=== PATIENT | male | born 1960 | race Caucasian/White ===

== ENCOUNTER 2021-07-13 15:11 | Inpatient (IN) ==
[2021-07-13 16:08] LABS: Basophils # 0.1 K/mcL (0.0-0.2); Basophils % 0.9 %; Eosinophils # 0.2 K/mcL (0.0-0.6); Eosinophils % 1.3 %; Hematocrit 34.4 % (37.5-50.1); Hemoglobin 12.1 g/dL (12.9-16.9); Immature Granulocytes % 1.2 % (0-4); Lymphocytes # 1.7 K/mcL (0.6-4.6); Lymphocytes % 10.7 %; Mean Corpuscular HGB Conc 35.2 g/dL (31.6-35.5); Mean Corpuscular Hemoglobin 30.7 pg (28.0-33.3); Mean Corpuscular Volume 87.3 fL (83.0-100.0); Mean Platelet Volume 8.1 fL (9.4-12.4); Monocytes # 1.2 K/mcL (0.0-1.3); Monocytes % 7.3 %; Neutrophils # 12.7 K/mcL (1.6-8.9); Platelet Count 304 K/mcL (140-400); Red Blood Count 3.94 M/mcL (4.19-5.50); Red Cell Distribution Width 12.9 % (11.5-14.5); Segmented Neutrophils % 78.6 %; White Blood Count 16.1 K/mcL (4.3-11.1)
[2021-07-13 16:17] LABS: Acetaminophen < 10 mcg/mL (10-20); Alanine Aminotransferase 52 Units/L (7-52); Albumin 4.4 g/dL (3.5-5.7); Albumin/Globulin Ratio 1.7 (1.1-2.2); Alkaline Phosphatase 118 Units/L (34-104); Aspartate Amino Transferase 49 Units/L (13-39); BUN/Creatinine Ratio 10 (6-26); Bilirubin,Total 0.4 mg/dL (0.3-1.0); Blood Urea Nitrogen 8 mg/dL (8-23); Calcium 8.7 mg/dL (8.6-10.3); Carbon Dioxide 17 mEq/L (23-29); Chloride 85 mEq/L (98-107); Ethanol 102 mg/dL (Less than 10); Globulin 2.6 g/dL (2.4-3.5); Glucose 120 mg/dL (70-105); Osmolality,Calculated 236 (280-300); Potassium 4.4 mEq/L (3.5-5.1); Sodium 113 mEq/L (136-145); eGFR For African Americans > 60 (> 60); eGFR For Non-African Americans > 60 (> 60)
[2021-07-13] MEDS ORDERED: *HR* LORazepam 0.5 MG TABLET PO ONE (16:50)
[2021-07-13] MEDS ORDERED: 0.9 % Sodium Chloride 1,000 ML IVC SCH (17:00)
[2021-07-13] MEDS ORDERED: Furosemide 40 MG/4 ML VIAL IVP ONE (17:43)
[2021-07-13] MEDS ORDERED: Morphine Sulfate 2 MG/ML SYRINGE IVP ONE (17:45)
[2021-07-13 17:50] LABS: Bilirubin,Urine Negative (Negative); Blood,Urine Negative (Negative); Clarity,Urine Clear (Clear); Color,Urine Yellow (Yellow); Glucose,Urine (UA) Normal (Normal); Hyaline Casts,Urine Few per lpf (None Seen); Ketones,Urine Negative (Negative); Leukocyte Esterase,Urine Negative (Negative); Mucus,Urine Few per lpf (None-Few); Nitrite,Urine Negative (Negative); Protein,Urine 200 mg/dL (Neg-Trace); RBC,Urine 0-3 per hpf (0-3); Specific Gravity,Urine 1.016 (1.010-1.025); Urobilinogen,Urine Normal (Normal); WBC,Urine 0-3 per hpf (0-3)
[2021-07-13] MEDS ORDERED: Ipratropium/Albuterol Neb 3 ML ONE (18:20)
[2021-07-13] MEDS ORDERED: Ipratropium/Albuterol Neb 3 ML IH ONE (18:24)
[2021-07-13 18:37] LABS: Creatine Kinase 151 Units/L (30-223); Lipase 68 Units/L (11-82); Troponin I < 0.03 ng/mL (< 0.04)
[2021-07-13] MEDS ORDERED: Melatonin 3 MG TABLET PO PRN (19:23)
[2021-07-13] MEDS ORDERED: Acetaminophen 325 MG TABLET PO PRN (19:23)
[2021-07-13] MEDS ORDERED: *HR* HYDROcodone/Acet 5/325 mg TABLET PO PRN (19:23)
[2021-07-13] MEDS ORDERED: Naloxone 0.4 MG/ML INJ IVP PRN (19:23)
[2021-07-13] MEDS ORDERED: Ondansetron 4 MG/2 ML VIAL IVP PRN (19:23)
[2021-07-13] MEDS ORDERED: *HR* LORazepam 2 MG/ML VIAL IVP PRN ×2 (19:29)
[2021-07-13] MEDS ORDERED: Saline Nasal Spray 44 ML BOTTLE NS PRN (19:30)
[2021-07-13] MEDS ORDERED: Saliva Stimulant 44.3ml BOTTLE PO PRN (19:30)
[2021-07-13] MEDS ORDERED: Artificial Tears SOLN 15 ML BOTTLE BOTH EYES PRN (19:30)
[2021-07-13] MEDS ORDERED: *HR* Dextrose 50 % in Water (Syg) 50 ML SYRINGE IVP PRN (19:32)
[2021-07-13] MEDS ORDERED: Dextrose Gel 15 GM/37.5 ML TUBE PO PRN ×2 (19:32)
[2021-07-13] MEDS ORDERED: D5% in Water 1,000 ML IVC PRN (19:32)
[2021-07-13] MEDS ORDERED: Perflutren Lipid Microsphere 1.3 ML in 0.9 % Sodium Chloride 8.7 ML IVP PRN (19:32)
[2021-07-13] MEDS: Ipratropium/Albuterol Neb 3 ML IH SCH ×2 (20:12→23:26)
[2021-07-13 20:45] LABS: BUN/Creatinine Ratio 11 (6-26); Blood Urea Nitrogen 8 mg/dL (8-23); Calcium 8.5 mg/dL (8.6-10.3); Carbon Dioxide 17 mEq/L (23-29); Chloride 87 mEq/L (98-107); Glucose 89 mg/dL (70-105); Osmolality,Calculated 236 (280-300); Potassium 4.6 mEq/L (3.5-5.1); Sodium 114 mEq/L (136-145); eGFR For African Americans > 60 (> 60); eGFR For Non-African Americans > 60 (> 60)
[2021-07-13] MEDS: Lactobacillus 1 EACH CAP.SPRINK PO SCH (20:58)
[2021-07-13] MEDS: Chlorhexidine Rinse 15 ML MOUTHWASH MM SCH (20:58)
[2021-07-13] MEDS: cefTRIAXone 2,000 MG in 0.9 % Sodium Chloride 20 ML IVP SCH (20:59)
[2021-07-13] MEDS: *HR* LORazepam 2 MG/ML VIAL IVP PRN (20:59)
[2021-07-13] MEDS: Furosemide 40 MG/4 ML VIAL IVP SCH (20:59)
[2021-07-13 21:11] LABS: Troponin I < 0.03 ng/mL (< 0.04)
[2021-07-13] MEDS: Doxycycline 100 MG in 0.9 % Sodium Chloride Mini Bag 100 ML IVPB SCH (21:20)
[2021-07-13] MEDS: Nicotine 21 MG PATCH.TD24 TD SCH (21:41)
[2021-07-13 23:15] LABS: Protein/Creatinine Ratio,Urine 2.71 mg/mg (0.00-0.20); Sodium, Urine 22.4 mEq/L
[2021-07-14] MEDS: methylPREDNISolone 125 MG/2 ML VIAL IVP SCH ×2 (00:52→07:59)
[2021-07-14] MEDS ORDERED: Calcium Gluconate 1gm/50mL 1 GM/50 ML BAG IVPB SCH (01:30)
[2021-07-14 02:38] LABS: BUN/Creatinine Ratio 12 (6-26); Blood Urea Nitrogen 10 mg/dL (8-23); Calcium 8.4 mg/dL (8.6-10.3); Carbon Dioxide 18 mEq/L (23-29); Chloride 89 mEq/L (98-107); Glucose 86 mg/dL (70-105); Osmolality,Calculated 244 (280-300); Potassium 4.3 mEq/L (3.5-5.1); Sodium 118 mEq/L (136-145); eGFR For African Americans > 60 (> 60); eGFR For Non-African Americans > 60 (> 60)
[2021-07-14 04:11] LABS: Troponin I < 0.03 ng/mL (< 0.04)
[2021-07-14] MEDS: Ipratropium/Albuterol Neb 3 ML IH SCH ×6 (04:26→23:43)
[2021-07-14 05:32] LABS: INR 1.4; Prothrombin Time 16.1 Seconds (9.4-12.1)
[2021-07-14 05:34] LABS: Activated Partial Thrombo Time 34.1 Seconds (26.0-36.0)
[2021-07-14 05:38] LABS: Basophils % 0.2 %; Eosinophils % 0.1 %; Hematocrit 34.5 % (37.5-50.1); Hemoglobin 12.2 g/dL (12.9-16.9); Immature Granulocytes % 0.8 % (0-4); Lymphocytes # 0.3 K/mcL (0.6-4.6); Lymphocytes % 2.7 %; Mean Corpuscular HGB Conc 35.4 g/dL (31.6-35.5); Mean Corpuscular Hemoglobin 30.5 pg (28.0-33.3); Mean Corpuscular Volume 86.3 fL (83.0-100.0); Mean Platelet Volume 8.3 fL (9.4-12.4); Monocytes # 0.3 K/mcL (0.0-1.3); Neutrophils # 11.7 K/mcL (1.6-8.9); Platelet Count 275 K/mcL (140-400); Red Cell Distribution Width 12.7 % (11.5-14.5); Segmented Neutrophils % 94.2 %; White Blood Count 12.4 K/mcL (4.3-11.1)
[2021-07-14 05:48] LABS: Alanine Aminotransferase 39 Units/L (7-52); Albumin 4.1 g/dL (3.5-5.7); Albumin/Globulin Ratio 1.6 (1.1-2.2); Alkaline Phosphatase 118 Units/L (34-104); Aspartate Amino Transferase 26 Units/L (13-39); BUN/Creatinine Ratio 13 (6-26); Bilirubin,Total 0.6 mg/dL (0.3-1.0); Blood Urea Nitrogen 11 mg/dL (8-23); Calcium 8.9 mg/dL (8.6-10.3); Carbon Dioxide 21 mEq/L (23-29); Chloride 89 mEq/L (98-107); Chol/HDL Ratio 1.8 (0-4.9); Cholesterol 96 mg/dL (< 200); Globulin 2.6 g/dL (2.4-3.5); Glucose 113 mg/dL (70-105); HDL Cholesterol 53 mg/dL (40-59); LDL Cholesterol,Calculated 33 mg/dL (< 100); Magnesium 1.7 mg/dL (1.6-2.6); Osmolality,Calculated 246 (280-300); Phosphorous 4.7 mg/dL (2.7-4.5); Potassium 4.7 mEq/L (3.5-5.1); Sodium 118 mEq/L (136-145); Total Protein 6.7 g/dL (6.4-8.9); Triglycerides 48 mg/dL (< 150); eGFR For African Americans > 60 (> 60); eGFR For Non-African Americans > 60 (> 60)
[2021-07-14] MEDS: Doxycycline 100 MG in 0.9 % Sodium Chloride Mini Bag 100 ML IVPB SCH (05:56)
[2021-07-14] MEDS ORDERED: *HR* Enoxaparin 40 MG/0.4 ML SYRINGE SQ SCH (06:00)
[2021-07-14] MEDS: *HR* LORazepam 2 MG/ML VIAL IVP PRN ×2 (06:08→13:21)
[2021-07-14] MEDS: Calcium Gluconate 1gm/50mL 1 GM/50 ML BAG IVPB SCH ×2 (06:29→06:58)
[2021-07-14] MEDS: Chlorhexidine Rinse 15 ML MOUTHWASH MM SCH ×2 (07:58→20:36)
[2021-07-14] MEDS: cefTRIAXone 2,000 MG in 0.9 % Sodium Chloride 20 ML IVP SCH (07:58)
[2021-07-14] MEDS: Furosemide 40 MG/4 ML VIAL IVP SCH ×2 (07:59→16:37)
[2021-07-14] MEDS: Nicotine 21 MG PATCH.TD24 TD SCH (07:59)
[2021-07-14] MEDS: Lactobacillus 1 EACH CAP.SPRINK PO SCH ×2 (07:59→20:28)
[2021-07-14] MEDS ORDERED: Vitamin B Complex/Vit C/Vit E 1 EACH TABLET PO SCH (09:00)
[2021-07-14] MEDS ORDERED: Thiamine (B-1) 100 MG TABLET PO SCH (09:00)
[2021-07-14] MEDS ORDERED: Folic Acid 1 MG TABLET PO SCH (09:00)
[2021-07-14] MEDS ORDERED: Nicotine 14 MG PATCH.TD24 TD SCH (09:00)
[2021-07-14 11:18] LABS: BUN/Creatinine Ratio 15 (6-26); Blood Urea Nitrogen 14 mg/dL (8-23); Calcium 9.6 mg/dL (8.6-10.3); Carbon Dioxide 21 mEq/L (23-29); Chloride 90 mEq/L (98-107); Glucose 208 mg/dL (70-105); Osmolality,Calculated 259 (280-300); Potassium 4.2 mEq/L (3.5-5.1); Sodium 121 mEq/L (136-145); eGFR For African Americans > 60 (> 60); eGFR For Non-African Americans > 60 (> 60)
[2021-07-14] MEDS ORDERED: Metoprolol XL (24 HR) Succ 25 MG TAB.ER.24H PO SCH (13:00)
[2021-07-14 17:01] LABS: BUN/Creatinine Ratio 18 (6-26); Blood Urea Nitrogen 20 mg/dL (8-23); Calcium 9.3 mg/dL (8.6-10.3); Carbon Dioxide 21 mEq/L (23-29); Chloride 93 mEq/L (98-107); Glucose 156 mg/dL (70-105); Osmolality,Calculated 264 (280-300); Potassium 4.1 mEq/L (3.5-5.1); Sodium 124 mEq/L (136-145); eGFR For African Americans > 60 (> 60); eGFR For Non-African Americans > 60 (> 60)
[2021-07-14] MEDS ORDERED: D5% in Water 1,000 ML IVC PRN (18:00)
[2021-07-14] MEDS ORDERED: Acetaminophen 325 MG TABLET PO PRN (18:00)
[2021-07-14] MEDS ORDERED: Saline Nasal Spray 44 ML BOTTLE NS PRN (18:00)
[2021-07-14] MEDS ORDERED: *HR* LORazepam 2 MG/ML VIAL IVP PRN ×3 (18:00)
[2021-07-14] MEDS ORDERED: *HR* HYDROcodone/Acet 5/325 mg TABLET PO PRN (18:00)
[2021-07-14] MEDS ORDERED: Ondansetron 4 MG/2 ML VIAL IVP PRN (18:00)
[2021-07-14] MEDS ORDERED: Melatonin 3 MG TABLET PO PRN (18:00)
[2021-07-14] MEDS ORDERED: Saliva Stimulant 44.3ml BOTTLE PO PRN (18:00)
[2021-07-14] MEDS ORDERED: *HR* Dextrose 50 % in Water (Syg) 50 ML SYRINGE IVP PRN (18:00)
[2021-07-14] MEDS ORDERED: Naloxone 0.4 MG/ML INJ IVP PRN (18:00)
[2021-07-14] MEDS ORDERED: Artificial Tears SOLN 15 ML BOTTLE BOTH EYES PRN (18:00)
[2021-07-14] MEDS ORDERED: Dextrose Gel 15 GM/37.5 ML TUBE PO PRN ×2 (18:00)
[2021-07-14 19:58] LABS: BUN/Creatinine Ratio 19 (6-26); Blood Urea Nitrogen 21 mg/dL (8-23); Calcium 9.5 mg/dL (8.6-10.3); Carbon Dioxide 21 mEq/L (23-29); Chloride 91 mEq/L (98-107); Glucose 153 mg/dL (70-105); Osmolality,Calculated 264 (280-300); Sodium 124 mEq/L (136-145); eGFR For African Americans > 60 (> 60); eGFR For Non-African Americans > 60 (> 60)
[2021-07-14] MEDS: Metoprolol 100 MG TABLET PO SCH (20:39)
[2021-07-15 01:41] LABS: Hematocrit 30.1 % (37.5-50.1); Mean Corpuscular HGB Conc 34.6 g/dL (31.6-35.5); Mean Corpuscular Volume 86.7 fL (83.0-100.0); Mean Platelet Volume 8.4 fL (9.4-12.4); Platelet Count 274 K/mcL (140-400); Red Blood Count 3.47 M/mcL (4.19-5.50); Red Cell Distribution Width 12.8 % (11.5-14.5)
[2021-07-15 01:53] LABS: Hemoglobin 10.4 g/dL (12.9-16.9); White Blood Count 23.3 K/mcL (4.3-11.1)
[2021-07-15 02:01] LABS: Magnesium 1.8 mg/dL (1.6-2.6)
[2021-07-15 02:22] LABS: BUN/Creatinine Ratio 23 (6-26); Blood Urea Nitrogen 22 mg/dL (8-23); Calcium 8.8 mg/dL (8.6-10.3); Carbon Dioxide 22 mEq/L (23-29); Chloride 92 mEq/L (98-107); Glucose 123 mg/dL (70-105); Osmolality,Calculated 259 (280-300); Potassium 3.8 mEq/L (3.5-5.1); Sodium 122 mEq/L (136-145); eGFR For African Americans > 60 (> 60); eGFR For Non-African Americans > 60 (> 60)
[2021-07-15] MEDS: Ipratropium/Albuterol Neb 3 ML IH SCH ×3 (03:58→11:20)
[2021-07-15 05:48] LABS: BUN/Creatinine Ratio 22 (6-26); Blood Urea Nitrogen 19 mg/dL (8-23); Calcium 8.7 mg/dL (8.6-10.3); Carbon Dioxide 24 mEq/L (23-29); Chloride 93 mEq/L (98-107); Glucose 112 mg/dL (70-105); Osmolality,Calculated 261 (280-300); Potassium 3.5 mEq/L (3.5-5.1); Sodium 124 mEq/L (136-145); eGFR For African Americans > 60 (> 60); eGFR For Non-African Americans > 60 (> 60)
[2021-07-15] MEDS ORDERED: *HR* Enoxaparin 40 MG/0.4 ML SYRINGE SQ SCH (06:00)
[2021-07-15 07:29] VITALS: TEMP 98.9
[2021-07-15] MEDS: Metoprolol 100 MG TABLET PO SCH (07:41)
[2021-07-15] MEDS: Lactobacillus 1 EACH CAP.SPRINK PO SCH (07:42)
[2021-07-15] MEDS: Chlorhexidine Rinse 15 ML MOUTHWASH MM SCH (07:43)
[2021-07-15] MEDS ORDERED: Furosemide 40 MG/4 ML VIAL IVP SCH (08:00)
[2021-07-15] MEDS ORDERED: Thiamine (B-1) 100 MG TABLET PO SCH (09:00)
[2021-07-15] MEDS ORDERED: Nicotine 21 MG PATCH.TD24 TD SCH (09:00)
[2021-07-15] MEDS ORDERED: Metoprolol XL (24 HR) Succ 25 MG TAB.ER.24H PO SCH (09:00)
[2021-07-15] MEDS ORDERED: Vitamin B Complex/Vit C/Vit E 1 EACH TABLET PO SCH (09:00)
[2021-07-15] MEDS ORDERED: Folic Acid 1 MG TABLET PO SCH (09:00)
[2021-07-15] MEDS ORDERED: Multivit/Ca/Min/Fe/FA 1 TAB TABLET PO SCH (09:00)
[2021-07-15 10:04] LABS: BUN/Creatinine Ratio 21 (6-26); Blood Urea Nitrogen 18 mg/dL (8-23); Calcium 9.7 mg/dL (8.6-10.3); Carbon Dioxide 24 mEq/L (23-29); Chloride 94 mEq/L (98-107); Glucose 107 mg/dL (70-105); Osmolality,Calculated 266 (280-300); Potassium 3.8 mEq/L (3.5-5.1); Sodium 127 mEq/L (136-145); eGFR For African Americans > 60 (> 60); eGFR For Non-African Americans > 60 (> 60)
[2021-07-15 12:14] VITALS: BP 144/71; PULSE 94; O2SAT 97
[2021-07-16] MEDS ORDERED: Furosemide 40 MG TABLET PO SCH (09:00)
== END 2021-07-15 14:25 | disposition home or self-care (01) | DRG 291 ==
LOC: EMEROOARM 15:11 → 2NENU 15:11 → ICNU 18:36 → 2NNU 07-14 19:35
PROVIDERS: ADMIT Internal Medicine; ATTEND Internal Medicine

== ENCOUNTER 2021-11-16 16:55 | Inpatient (IN) ==
[2021-11-16] MEDS ORDERED: 0.9 % Sodium Chloride 1,000 ML IVC ONE (19:45)
[2021-11-16 20:26] LABS: Basophils # 0.2 K/mcL (0.0-0.2); Basophils % 1.2 %; Bilirubin,Urine Negative (Negative); Blood,Urine Negative (Negative); Clarity,Urine Clear (Clear); Color,Urine Colorless (Yellow); Eosinophils # 0.5 K/mcL (0.0-0.6); Eosinophils % 3.2 %; Glucose,Urine (UA) Normal (Normal); Hematocrit 38.2 % (37.5-50.1); Hemoglobin 13.3 g/dL (12.9-16.9); Immature Granulocytes % 0.8 % (0-4); Ketones,Urine Negative (Negative); Leukocyte Esterase,Urine Negative (Negative); Lymphocytes # 1.9 K/mcL (0.6-4.6); Lymphocytes % 12.4 %; Mean Corpuscular HGB Conc 34.8 g/dL (31.6-35.5); Mean Platelet Volume 8.3 fL (9.4-12.4); Monocytes # 1.5 K/mcL (0.0-1.3); Monocytes % 9.8 %; Neutrophils # 11.4 K/mcL (1.6-8.9); Nitrite,Urine Negative (Negative); PH,Urine 6.5 pH Units (5.0-8.0); Platelet Count 314 K/mcL (140-400); Protein,Urine 100 mg/dL (Neg-Trace); RBC,Urine 0-3 per hpf (0-3); Red Blood Count 4.29 M/mcL (4.19-5.50); Red Cell Distribution Width 12.8 % (11.5-14.5); Segmented Neutrophils % 72.6 %; Specific Gravity,Urine 1.005 (1.010-1.025); Urobilinogen,Urine Normal (Normal); WBC,Urine 0-3 per hpf (0-3); White Blood Count 15.6 K/mcL (4.3-11.1)
[2021-11-16] MEDS ORDERED: *HR* LORazepam 2 MG/ML VIAL IVP ONE (20:27)
[2021-11-16 20:35] LABS: Amphetamine Screen,Urine Negative ng/mL (Cutoff=1000); Barbiturate Screen,Urine Negative ng/mL (Cutoff=200); Benzodiazepines Screen,Urine Negative ng/mL (Cutoff=200); Cannabinoid Screen,Urine Negative ng/mL (Cutoff = 50); Cocaine Screen,Urine Negative ng/mL (Cutoff= 300); Opiate Screen,Urine Negative ng/mL (Cutoff=300); Phencyclidine Screen,Urine Negative ng/mL (Cutoff=25)
[2021-11-16 20:45] LABS: INR 1.3; Prothrombin Time 14.6 Seconds (9.4-12.1)
[2021-11-16 20:50] LABS: Alanine Aminotransferase 39 Units/L (7-52); Albumin 4.3 g/dL (3.5-5.7); Albumin/Globulin Ratio 1.4 (1.1-2.2); Alkaline Phosphatase 111 Units/L (34-104); Aspartate Amino Transferase 31 Units/L (13-39); BUN/Creatinine Ratio 16 (6-26); Bilirubin,Total 0.5 mg/dL (0.3-1.0); Blood Urea Nitrogen 12 mg/dL (8-23); Calcium 9.5 mg/dL (8.6-10.3); Carbon Dioxide 24 mEq/L (23-29); Chloride 97 mEq/L (98-107); Ethanol < 10 mg/dL (Less than 10); Globulin 3.1 g/dL (2.4-3.5); Glucose 101 mg/dL (70-105); Lipase 54 Units/L (11-82); Magnesium 1.8 mg/dL (1.6-2.6); Osmolality,Calculated 268 (280-300); Phosphorous 4.3 mg/dL (2.7-4.5); Potassium 4.3 mEq/L (3.5-5.1); Sodium 129 mEq/L (136-145); Total Protein 7.4 g/dL (6.4-8.9)
[2021-11-16 21:05] LABS: Troponin I 0.03 ng/mL (< 0.04)
[2021-11-16] MEDS ORDERED: Nicotine 21 MG PATCH.TD24 TD STA (23:30)
[2021-11-17] MEDS ORDERED: Melatonin 3 MG TABLET PO PRN (00:40)
[2021-11-17] MEDS ORDERED: Naloxone 0.4 MG/ML INJ IVP PRN (00:40)
[2021-11-17] MEDS ORDERED: Acetaminophen 325 MG TABLET PO PRN (00:40)
[2021-11-17] MEDS ORDERED: Ondansetron 4 MG/2 ML VIAL IVP PRN (00:40)
[2021-11-17] MEDS ORDERED: Ringers Solution, Lactated 1,000 ML IVC SCH (00:45)
[2021-11-17] MEDS ORDERED: *HR* LORazepam 1 MG TABLET PO PRN ×2 (00:46)
[2021-11-17] MEDS: *HR* LORazepam 1 MG TABLET PO PRN ×2 (02:24→21:17)
[2021-11-17 02:54] LABS: Basophils # 0.2 K/mcL (0.0-0.2); Basophils % 1.1 %; Eosinophils # 0.5 K/mcL (0.0-0.6); Eosinophils % 3.7 %; Hematocrit 35.4 % (37.5-50.1); Hemoglobin 12.3 g/dL (12.9-16.9); Immature Granulocytes % 0.6 % (0-4); Lymphocytes # 1.4 K/mcL (0.6-4.6); Mean Corpuscular HGB Conc 34.7 g/dL (31.6-35.5); Mean Corpuscular Hemoglobin 31.1 pg (28.0-33.3); Mean Corpuscular Volume 89.4 fL (83.0-100.0); Mean Platelet Volume 8.6 fL (9.4-12.4); Monocytes # 1.7 K/mcL (0.0-1.3); Monocytes % 11.6 %; Neutrophils # 10.3 K/mcL (1.6-8.9); Platelet Count 295 K/mcL (140-400); Red Blood Count 3.96 M/mcL (4.19-5.50); Red Cell Distribution Width 12.8 % (11.5-14.5); White Blood Count 14.2 K/mcL (4.3-11.1)
[2021-11-17 03:04] LABS: INR 1.3
[2021-11-17 03:07] LABS: Activated Partial Thrombo Time 34.4 Seconds (26.0-36.0)
[2021-11-17 03:15] LABS: Alanine Aminotransferase 34 Units/L (7-52); Albumin 3.8 g/dL (3.5-5.7); Albumin/Globulin Ratio 1.4 (1.1-2.2); Alkaline Phosphatase 103 Units/L (34-104); Aspartate Amino Transferase 28 Units/L (13-39); BUN/Creatinine Ratio 13 (6-26); Bilirubin,Total 0.4 mg/dL (0.3-1.0); Blood Urea Nitrogen 10 mg/dL (8-23); Calcium 8.9 mg/dL (8.6-10.3); Carbon Dioxide 21 mEq/L (23-29); Chloride 100 mEq/L (98-107); Globulin 2.8 g/dL (2.4-3.5); Glucose 168 mg/dL (70-105); Magnesium 1.8 mg/dL (1.6-2.6); Osmolality,Calculated 273 (280-300); Phosphorous 2.9 mg/dL (2.7-4.5); Potassium 3.8 mEq/L (3.5-5.1); Sodium 130 mEq/L (136-145); Total Protein 6.6 g/dL (6.4-8.9)
[2021-11-17] MEDS ORDERED: Furosemide 20 MG/2 ML VIAL IVP ONE (03:25)
[2021-11-17] MEDS: Ipratropium/Albuterol Neb 3 ML IH SCH ×5 (04:41→22:00)
[2021-11-17 05:40] LABS: % Iron Saturation 18 % (20-55); Iron 63 mcg/dL (65-175); Transferrin 257 mg/dL (203-362)
[2021-11-17 05:54] LABS: Ferritin 27 ng/mL (20-250)
[2021-11-17 06:00] LABS: Vitamin B12 541 pg/mL (250-1100)
[2021-11-17] MEDS ORDERED: Potassium Chloride Elixir 20 MEQ/15 ML UDC PO ONE (06:00)
[2021-11-17 06:09] LABS: Folate > 22.3 ng/mL (3.0-16.0)
[2021-11-17] MEDS: predniSONE 20 MG TABLET PO SCH (08:43)
[2021-11-17] MEDS: Azithromycin 250 MG TABLET PO SCH (08:44)
[2021-11-17] MEDS: Furosemide 40 MG TABLET PO SCH ×2 (08:44→17:58)
[2021-11-17] MEDS: Metoprolol XL (24 HR) Succ 50 MG TAB.ER.24H PO SCH (08:44)
[2021-11-17] MEDS: *HR* Enoxaparin 40 MG/0.4 ML SYRINGE SQ SCH (08:48)
[2021-11-17] MEDS ORDERED: Chlorhexidine Rinse 15 ML MOUTHWASH MM SCH (09:00)
[2021-11-17] MEDS: Budesonide/Formoterol 160/4.5 1 PUFF INH IH SCH ×2 (11:04→21:59)
[2021-11-17] MEDS ORDERED: Thiamine (B-1) 100 MG, Folic Acid 1 MG, MVI, adult with vitamin K 10 ML in 0.9 % Sodi... IVPB SCH (18:00)
[2021-11-17] MEDS ORDERED: Eszopiclone [Lunesta] 3 MG Tablet PO PRN (20:06)
[2021-11-17] MEDS: Nicotine 21 MG PATCH.TD24 TD SCH (21:18)
[2021-11-17 22:54] LABS: Adenovirus Not Detected (Not Detect); Bordetella Pertussis Not Detected (Not Detect); Chlamydophila pneumoniae Not Detected (Not Detect); Coronavirus 229E Not Detected (Not Detect); Coronavirus HKU1 Not Detected (Not Detect); Coronavirus NL63 Not Detected (Not Detect); Coronavirus OC43 Not Detected (Not Detect); Human Metapneumovirus Not Detected (Not Detect); Human Rhinovirus/Enterovirus Not Detected (Not Detect); Influenza A Subtype 2009 H1 Not Detected (Not Detect); Influenza B Not Detected (Not Detect); Mycoplasma pneumoniae Not Detected (Not Detect); Parainfluenza Virus 1 Not Detected (Not Detect); Parainfluenza Virus 2 Not Detected (Not Detect); Parainfluenza Virus 3 Not Detected (Not Detect); Parainfluenza Virus 4 Not Detected (Not Detect); Respiratory Syncytial Virus Not Detected (Not Detect); SARS-CoV-2 Not Detected (Not Detect)
[2021-11-18 03:09] LABS: Basophils # 0.1 K/mcL (0.0-0.2); Basophils % 0.8 %; Eosinophils # 0.2 K/mcL (0.0-0.6); Eosinophils % 1.7 %; Hematocrit 33.3 % (37.5-50.1); Hemoglobin 11.3 g/dL (12.9-16.9); Immature Granulocytes % 0.6 % (0-4); Lymphocytes % 16.1 %; Mean Corpuscular HGB Conc 33.9 g/dL (31.6-35.5); Mean Corpuscular Hemoglobin 30.6 pg (28.0-33.3); Mean Corpuscular Volume 90.2 fL (83.0-100.0); Mean Platelet Volume 8.4 fL (9.4-12.4); Monocytes # 1.5 K/mcL (0.0-1.3); Monocytes % 12.5 %; Neutrophils # 8.4 K/mcL (1.6-8.9); Platelet Count 295 K/mcL (140-400); Red Blood Count 3.69 M/mcL (4.19-5.50); Red Cell Distribution Width 13.1 % (11.5-14.5); Segmented Neutrophils % 68.3 %; White Blood Count 12.3 K/mcL (4.3-11.1)
[2021-11-18 03:27] LABS: BUN/Creatinine Ratio 17 (6-26); Blood Urea Nitrogen 15 mg/dL (8-23); Carbon Dioxide 23 mEq/L (23-29); Chloride 102 mEq/L (98-107); Glucose 100 mg/dL (70-105); Osmolality,Calculated 273 (280-300); Potassium 3.5 mEq/L (3.5-5.1); Sodium 131 mEq/L (136-145)
[2021-11-18] MEDS: Ipratropium/Albuterol Neb 3 ML IH SCH ×4 (03:30→22:38)
[2021-11-18] MEDS: *HR* Enoxaparin 40 MG/0.4 ML SYRINGE SQ SCH (05:42)
[2021-11-18] MEDS: Nicotine 21 MG PATCH.TD24 TD SCH (08:28)
[2021-11-18] MEDS: Metoprolol XL (24 HR) Succ 50 MG TAB.ER.24H PO SCH (08:29)
[2021-11-18] MEDS: predniSONE 20 MG TABLET PO SCH (08:29)
[2021-11-18] MEDS: Furosemide 40 MG TABLET PO SCH ×2 (08:29→16:24)
[2021-11-18] MEDS: Azithromycin 250 MG TABLET PO SCH (08:29)
[2021-11-18] MEDS: *HR* LORazepam 1 MG TABLET PO PRN ×2 (08:39→20:37)
[2021-11-18] MEDS: Budesonide/Formoterol 160/4.5 1 PUFF INH IH SCH ×2 (11:10→22:38)
[2021-11-19] MEDS: Ipratropium/Albuterol Neb 3 ML IH SCH ×4 (03:56→22:41)
[2021-11-19] MEDS: *HR* Enoxaparin 40 MG/0.4 ML SYRINGE SQ SCH (06:12)
[2021-11-19] MEDS: *HR* LORazepam 1 MG TABLET PO PRN ×2 (06:59→20:42)
[2021-11-19] MEDS: Furosemide 40 MG TABLET PO SCH ×3 (07:54→17:33)
[2021-11-19] MEDS: Nicotine 21 MG PATCH.TD24 TD SCH (10:11)
[2021-11-19] MEDS: Metoprolol XL (24 HR) Succ 50 MG TAB.ER.24H PO SCH (10:13)
[2021-11-19] MEDS: predniSONE 20 MG TABLET PO SCH (10:13)
[2021-11-19] MEDS ORDERED: Furosemide 40 MG TABLET PO PRN (10:20)
[2021-11-19] MEDS ORDERED: traZODone 50 MG TABLET PO PRN (10:20)
[2021-11-19] MEDS ORDERED: Metoprolol XL (24 HR) Succ 50 MG TAB.ER.24H PO ONE (10:21)
[2021-11-19] MEDS: Azithromycin 250 MG TABLET PO SCH ×2 (10:32→10:47)
[2021-11-19] MEDS: Budesonide/Formoterol 160/4.5 1 PUFF INH IH SCH ×2 (10:41→22:41)
[2021-11-19 19:44] LABS: Influenza A PCR Negative (Negative); Influenza B PCR Negative (Negative); Resp. Syncytial Virus PCR Negative (Negative); SARS-CoV-2 by PCR (In House) Negative (Negative)
[2021-11-20 03:37] VITALS: TEMP 97.7; O2SAT 97
[2021-11-20] MEDS: Ipratropium/Albuterol Neb 3 ML IH SCH ×2 (04:13→09:47)
[2021-11-20] MEDS: *HR* Enoxaparin 40 MG/0.4 ML SYRINGE SQ SCH (05:10)
[2021-11-20] MEDS: predniSONE 20 MG TABLET PO SCH (08:37)
[2021-11-20] MEDS: Nicotine 21 MG PATCH.TD24 TD SCH (08:37)
[2021-11-20] MEDS: *HR* LORazepam 1 MG TABLET PO PRN (08:49)
[2021-11-20] MEDS: Furosemide 40 MG TABLET PO SCH (08:57)
[2021-11-20] MEDS ORDERED: Metoprolol XL (24 HR) Succ 50 MG TAB.ER.24H PO SCH (09:00)
[2021-11-20] MEDS ORDERED: Folic Acid 1 MG TABLET PO SCH (09:00)
[2021-11-20] MEDS ORDERED: Thiamine (B-1) 100 MG TABLET PO SCH (09:00)
[2021-11-20] MEDS ORDERED: Vitamin B Complex/Vit C/Vit E 1 EACH TABLET PO SCH (09:00)
[2021-11-20] MEDS: Budesonide/Formoterol 160/4.5 1 PUFF INH IH SCH (09:47)
[2021-11-20 10:40] VITALS: BP 169/80; PULSE 79
== END 2021-11-20 11:49 | disposition other institution (70) | DRG 896 ==
LOC: 3BNU 16:55 → EMEROOARM 16:55 → SUATTDRO 11-17 00:50 → 3BNU 11-17 01:14 → SUATTDRO 11-18 16:35
PROVIDERS: ADMIT Internal Medicine; ATTEND Nurse Practitioner

== ENCOUNTER 2021-12-07 17:53 | Observation (INO) ==
[2021-12-07] MEDS ORDERED: Iopamidol - 370 500 ML MLS IVP ONE (18:52)
[2021-12-07 19:20] LABS: Basophils # 0.1 K/mcL (0.0-0.2); Basophils % 0.8 %; Eosinophils # 0.7 K/mcL (0.0-0.6); Eosinophils % 3.8 %; Hematocrit 37.8 % (37.5-50.1); Hemoglobin 12.7 g/dL (12.9-16.9); Immature Granulocytes % 0.5 % (0-4); Lymphocytes # 1.5 K/mcL (0.6-4.6); Lymphocytes % 8.5 %; Mean Corpuscular HGB Conc 33.6 g/dL (31.6-35.5); Mean Corpuscular Hemoglobin 30.8 pg (28.0-33.3); Mean Corpuscular Volume 91.7 fL (83.0-100.0); Mean Platelet Volume 8.6 fL (9.4-12.4); Monocytes # 1.9 K/mcL (0.0-1.3); Monocytes % 11.2 %; Neutrophils # 12.9 K/mcL (1.6-8.9); Platelet Count 334 K/mcL (140-400); Red Blood Count 4.12 M/mcL (4.19-5.50); Red Cell Distribution Width 12.5 % (11.5-14.5); Segmented Neutrophils % 75.2 %; White Blood Count 17.2 K/mcL (4.3-11.1)
[2021-12-07 19:40] LABS: Albumin 4.1 g/dL (3.5-5.7); Albumin/Globulin Ratio 1.6 (1.1-2.2); Bilirubin,Indirect 0.3 mg/dL (0.0-1.0); Bilirubin,Total 0.3 mg/dL (0.3-1.0); Calcium 9.2 mg/dL (8.6-10.3); Globulin 2.5 g/dL (2.4-3.5); Potassium 4.2 mEq/L (3.5-5.1); Total Protein 6.6 g/dL (6.4-8.9)
[2021-12-07] MEDS ORDERED: Piperacillin/Tazobactam 3.375 GM in 0.9 % Sodium Chloride Mini Bag 100 ML IVPB ONE (20:14)
[2021-12-07] MEDS ORDERED: hydrOXYzine pamoate 25 MG CAPSULE PO ONE (21:30)
[2021-12-07] MEDS ORDERED: Naloxone 0.4 MG/ML INJ IVP PRN (21:35)
[2021-12-07] MEDS ORDERED: Melatonin 3 MG TABLET PO PRN (21:40)
[2021-12-07] MEDS ORDERED: Ondansetron ODT 4 MG TAB.RAPDIS SL PRN (21:40)
[2021-12-07] MEDS ORDERED: traZODone 50 MG TABLET PO PRN (21:44)
[2021-12-07] MEDS ORDERED: Ringers Solution, Lactated 1,000 ML IVC SCH (22:00)
[2021-12-08 01:17] LABS: Bilirubin,Urine Negative (Negative); Blood,Urine Trace (Negative); Clarity,Urine Clear (Clear); Color,Urine Light-Yellow (Yellow); Glucose,Urine (UA) Normal (Normal); Ketones,Urine Negative (Negative); Leukocyte Esterase,Urine Negative (Negative); Mucus,Urine Few per lpf (None-Few); Nitrite,Urine Negative (Negative); PH,Urine 6.5 pH Units (5.0-8.0); Protein,Urine >=600 mg/dL (Neg-Trace); Specific Gravity,Urine 1.025 (1.010-1.025); Urobilinogen,Urine Normal (Normal); WBC,Urine 0-3 per hpf (0-3)
[2021-12-08 05:00] LABS: Basophils # 0.2 K/mcL (0.0-0.2); Basophils % 0.9 %; Eosinophils # 0.6 K/mcL (0.0-0.6); Eosinophils % 3.6 %; Hematocrit 36.5 % (37.5-50.1); Hemoglobin 12.3 g/dL (12.9-16.9); Immature Granulocytes % 0.4 % (0-4); Lymphocytes # 1.9 K/mcL (0.6-4.6); Lymphocytes % 10.8 %; Mean Corpuscular HGB Conc 33.7 g/dL (31.6-35.5); Mean Corpuscular Hemoglobin 30.8 pg (28.0-33.3); Mean Corpuscular Volume 91.3 fL (83.0-100.0); Mean Platelet Volume 8.8 fL (9.4-12.4); Monocytes # 2.1 K/mcL (0.0-1.3); Monocytes % 12.2 %; Neutrophils # 12.5 K/mcL (1.6-8.9); Platelet Count 327 K/mcL (140-400); Red Cell Distribution Width 12.5 % (11.5-14.5); Segmented Neutrophils % 72.1 %; White Blood Count 17.3 K/mcL (4.3-11.1)
[2021-12-08] MEDS: Piperacillin/Tazobactam 3.375 GM in 0.9 % Sodium Chloride Mini Bag 100 ML IVPB SCH ×3 (05:20→20:53)
[2021-12-08 05:22] LABS: Alanine Aminotransferase 43 Units/L (7-52); Albumin 3.6 g/dL (3.5-5.7); Albumin/Globulin Ratio 1.4 (1.1-2.2); Alkaline Phosphatase 86 Units/L (34-104); Aspartate Amino Transferase 22 Units/L (13-39); BUN/Creatinine Ratio 18 (6-26); Bilirubin,Total 0.6 mg/dL (0.3-1.0); Blood Urea Nitrogen 17 mg/dL (8-23); Calcium 9.1 mg/dL (8.6-10.3); Carbon Dioxide 22 mEq/L (23-29); Chloride 106 mEq/L (98-107); Globulin 2.6 g/dL (2.4-3.5); Glucose 97 mg/dL (70-105); Magnesium 1.8 mg/dL (1.6-2.6); Osmolality,Calculated 279 (280-300); Phosphorous 3.5 mg/dL (2.7-4.5); Potassium 4.1 mEq/L (3.5-5.1); Sodium 134 mEq/L (136-145); Total Protein 6.2 g/dL (6.4-8.9)
[2021-12-08] MEDS: Metoprolol XL (24 HR) Succ 50 MG TAB.ER.24H PO SCH (08:46)
[2021-12-08] MEDS ORDERED: Nicotine 7 MG PATCH.TD24 TD SCH (09:00)
[2021-12-08] MEDS: Nicotine 21 MG PATCH.TD24 TD SCH (10:11)
[2021-12-08] MEDS: Nicotine 2 MG GUM BC PRN ×3 (13:02→19:40)
[2021-12-08] MEDS: hydrOXYzine pamoate 25 MG CAPSULE PO PRN ×2 (15:29→22:24)
[2021-12-09 03:45] LABS: Basophils # 0.1 K/mcL (0.0-0.2); Basophils % 1.1 %; Eosinophils # 0.7 K/mcL (0.0-0.6); Eosinophils % 5.3 %; Hematocrit 35.3 % (37.5-50.1); Immature Granulocytes % 0.5 % (0-4); Lymphocytes # 1.9 K/mcL (0.6-4.6); Mean Corpuscular Volume 91.2 fL (83.0-100.0); Mean Platelet Volume 8.8 fL (9.4-12.4); Monocytes # 1.7 K/mcL (0.0-1.3); Monocytes % 12.7 %; Neutrophils # 8.8 K/mcL (1.6-8.9); Platelet Count 314 K/mcL (140-400); Red Blood Count 3.87 M/mcL (4.19-5.50); Red Cell Distribution Width 12.5 % (11.5-14.5); Segmented Neutrophils % 66.4 %; White Blood Count 13.3 K/mcL (4.3-11.1)
[2021-12-09 04:04] LABS: BUN/Creatinine Ratio 11 (6-26); Blood Urea Nitrogen 10 mg/dL (8-23); Calcium 9.1 mg/dL (8.6-10.3); Carbon Dioxide 22 mEq/L (23-29); Chloride 104 mEq/L (98-107); Glucose 91 mg/dL (70-105); Osmolality,Calculated 275 (280-300); Sodium 133 mEq/L (136-145)
[2021-12-09] MEDS: Piperacillin/Tazobactam 3.375 GM in 0.9 % Sodium Chloride Mini Bag 100 ML IVPB SCH ×2 (05:11→14:12)
[2021-12-09] MEDS: Nicotine 21 MG PATCH.TD24 TD SCH (05:12)
[2021-12-09] MEDS: Metoprolol XL (24 HR) Succ 50 MG TAB.ER.24H PO SCH (08:57)
[2021-12-09] MEDS ORDERED: Cholecalciferol (D-3) 1,000 UNIT (25MCG) TABLET PO SCH (09:00)
[2021-12-09 14:30] LABS: Influenza A PCR Negative (Negative); Influenza B PCR Negative (Negative); Resp. Syncytial Virus PCR Negative (Negative)
[2021-12-09 15:03] LABS: SARS-CoV-2 by PCR (In House) Negative (Negative)
[2021-12-09 15:08] VITALS: BP 173/83; PULSE 70; TEMP 98.6; O2SAT 100
== END 2021-12-09 17:21 | disposition home or self-care (01) ==
LOC: EMEROOARM 17:53 → 3ANU 17:53 → SUATTDRO 21:25 → 3ANU 22:00
PROVIDERS: ADMIT Internal Medicine; ATTEND Nurse Practitioner